=== PATIENT | female | born 1960 | race Caucasian/White ===

== ENCOUNTER 2016-11-13 10:23 | Emergency (ER) | payer OTHER ==
[~2016-11-13] VITALS: Ht 152.4 cm; Wt 51.1 kg
[~2016-11-13 10:23] MED LIST: ASPIRIN81 M2 PO; COZAAR50 MG PO; CYANOCOBALAM1000 MCG PO; DOXYCYCLINE HY100 M3 PO; HYDROCHLOROTHIA25 MG PO; IBUPROFEN800 MG PO; LIPITOR40 MG PO; METOPROLOL SUC100 MG PO; PRAVASTATIN SOD40 MG PO; TOPROL XL200 MG PO; VICODIN 5-3001 EACH PO; VITAMIN D2000 UNIT PO
[2016-11-13] MEDS ORDERED: TYLENOL WITH C1 EACH PO (13:38)
[2016-11-13 14:08] VITALS: BP 167/105
== END 2016-11-13 14:53 | disposition home or self-care (01) ==
LOC: EME 10:23
DX: M54.5 Low back pain (principal); S32.050A Wedge compression fracture of fifth lumbar vertebra, initial encounter for closed fracture; S32.010A Wedge compression fracture of first lumbar vertebra, initial encounter for closed fracture; S32.011A Stable burst fracture of first lumbar vertebra, initial encounter for closed fracture; W18.40XA Slipping, tripping and stumbling without falling, unspecified, initial encounter; Y92.018 Other place in single-family (private) house as the place of occurrence of the external cause; Y93.01 Activity, walking, marching and hiking; F17.200 Nicotine dependence, unspecified, uncomplicated
CPT/HCPCS: 72100; 80048; 85025; 85610; 99281; 99285; G8978 GP CI; G8979 GP CH; G8987 GO CI; G8988 GO CH; J1885

== ENCOUNTER 2016-11-26 12:09 | Inpatient (IN) | payer OTHER ==
[~2016-11-26] VITALS: Ht 157.5 cm; Wt 54.1 kg
[~2016-11-26 12:09] MED LIST changes: +TYLENOL WITH C1 EACH PO
[2016-11-26 12:35] LABS: ADD MIUA? YES; BILIRUBIN SMALL; BLOOD LARGE; COLOR DK YELLOW ((YELLOW)); GLUCOSE (STRIP) 250; KETONES TRACE; LEUKOCYTES NEGATIVE; NITRITE NEGATIVE; PROTEIN (STRIP) >=300; SPECIFIC GRAVITY 1.033 (1.000-1.030)
[2016-11-26 12:55] LABS: EOSINOPHIL (%) 0 % (0-5); HEMATOCRIT 37.9 % (36.0-46.0); IMMATURE GRANULOCYTE (%) 1.4 % (0.0-0.7); IMMATURE GRANULOCYTE COUNT 2.3 K/uL; LYMPHOCYTE COUNT 1.1 K/uL (1.0-2.8); MCH 29.1 PG (29.0-34.0); MCHC 33.5 G/DL (30.0-36.0); MEAN PLAT.VOLUME 12.1 uM^3 (9.5-12.4); MONOCYTE (%) 4.3 % (3-12); MONOCYTE COUNT 0.7 K/uL (0-0.8); NEUTROPHIL (%) 87.5 % (45-76); NEUTROPHIL COUNT 14.6 K/uL (1.8-6.4); RBC DIS.WIDTH-CV 15.1 % (11.8-14.6); RBC DIS.WIDTH-SD 47.3 % (39-53); RED BLOOD COUNT 4.37 M/uL (3.80-5.20)
[2016-11-26 12:57] LABS: MCV 86.7 FL (83-99); PLATELET COUNT 151 K/uL (156-360); WHITE BLOOD COUNT 16.6 K/uL (4.1-10.2)
[2016-11-26 12:58] LABS: CHLORIDE 95 mEq/L (99-109); POTASSIUM 2.8 mEq/L (3.7-5.4); SODIUM 137 mEq/L (136-147)
[2016-11-26 13:00] LABS: GLUCOSE 182 mg/dL (70-99)
[2016-11-26 13:01] LABS: ANION GAP 16 MEQ/L (2-14); INTER. NORMALIZED RATIO 1.2; PROTHROMBIN TIME 12.5 (9.2-11.2); PTT 35.4 (25-32)
[2016-11-26 13:02] LABS: TOTAL BILIRUBIN 1.2 mg/dL (0.0-1.0)
[2016-11-26 13:03] LABS: ALKALINE PHOSPHATASE 106 IU/L (3-129)
[2016-11-26 13:04] LABS: GFR ESTIMATE (CALCULATED) > 59 mL/min/
[2016-11-26 13:05] LABS: UREA NITROGEN (BUN) 24 mg/dL (9-23)
[2016-11-26 13:06] LABS: RED BLOOD CELLS RARE /HPF (0-5)
[2016-11-26 13:07] LABS: BACTERIA 1+ /HPF; CASTS PRESENT /LPF; CRYSTALS PRESENT; EPITHELIAL CELLS RARE /HPF; MUCUS NONE SEEN; UCUL ADDED? NO
[2016-11-26 13:08] LABS: AMORPHOUS URATES CRYSTALS 2+; HYALINE CASTS RARE /LPF
[2016-11-26 13:11] LABS: TROP-I INTERPRETATION NEGATIVE; TROPONIN-I 0.23 ng/mL (0.0-0.30)
[2016-11-26 18:25] LABS: BASE EXCESS 2.4 mEq/L (-3 to +3); BICARBONATE 26.3 mEq/L (22-26); CARBOXY HGB 1.1 % (0-5); METHEMOGLOBIN 1.1 % (0-1.5); PCO2 37 mm Hg (35-45); PO2 181 mm Hg (80-100); pH 7.46 (7.35-7.45)
[2016-11-26 18:26] LABS: COMMENTS - BLOOD GASES A+C+; DEVICE 840 PB; FI02 60 %; MECHANICAL RATE 18 resp/min; MODE AC; PEEP 5 CM/H20; SITE RR; TIDAL VOLUME 400 ML; TOTAL RESP RATE 18 resp/min
[2016-11-26] MEDS ORDERED: LOSARTAN POTASS50 MG PO (20:39)
[2016-11-26] MEDS ORDERED: METOPROLOL SUC200 MG PO (20:39)
[2016-11-26] MEDS ORDERED: OXYCODONE-APAP1 EACH PO (20:40)
[2016-11-26] MEDS ORDERED: VITAMIN D31000 UNIT PO (20:41)
[2016-11-26 21:31] VITALS: BP 125/92
[2016-11-26 21:41] LABS: INFLUENZA A VIRAL ANTIGEN NEGATIVE; INFLUENZA B VIRAL ANTIGEN NEGATIVE
[2016-11-26 22:00] VITALS: BP 125/92
[2016-11-26 22:30] VITALS: BP 129/86
[2016-11-26 23:00] VITALS: BP 139/93
[2016-11-26 23:45] LABS: METH RESISTANT S AUREUS PCR NEGATIVE (NEGATIVE)
[2016-11-26 23:46] LABS: PROBE CHECK PASS; SPECIMEN PROCESSING CONTROL PASS
[2016-11-27] VITALS (10 sets, daily range): BP systolic 90–155; BP diastolic 62–101
[2016-11-27 06:19] LABS: HEMATOCRIT 28.7 % (36.0-46.0); MCH 29.2 PG (29.0-34.0); MCHC 33.1 G/DL (30.0-36.0); MCV 88.3 FL (83-99); MEAN PLAT.VOLUME 11.9 uM^3 (9.5-12.4); PLATELET COUNT 115 K/uL (156-360); RBC DIS.WIDTH-CV 15.7 % (11.8-14.6); RBC DIS.WIDTH-SD 51.3 % (39-53)
[2016-11-27 06:23] LABS: ANION GAP 9 MEQ/L (2-14); CHLORIDE 108 MEQ/L (99-109); GFR ESTIMATE (CALCULATED) > 59 mL/min/; GLUCOSE 141 mg/dL (70-99); POTASSIUM 2.8 MEQ/L (3.7-5.4); SAMPLE HEMOLYSIS CHECK 0; SAMPLE ICTERIC CHECK 0; SAMPLE LIPEMIA CHECK 0; SODIUM 139 MEQ/L (136-147); UREA NITROGEN (BUN) 16 mg/dL (9-23)
[2016-11-27 06:26] LABS: RED BLOOD COUNT 3.25 M/uL (3.80-5.20)
[2016-11-27 06:35] LABS: INTER. NORMALIZED RATIO 1.3; PROTHROMBIN TIME 13.3 (9.2-11.2)
[2016-11-27 19:36] LABS: ANION GAP 5 MEQ/L (2-14); CHLORIDE 112 MEQ/L (99-109); GFR ESTIMATE (CALCULATED) > 59 mL/min/; GLUCOSE 97 mg/dL (70-99); POTASSIUM 3.4 MEQ/L (3.7-5.4); SAMPLE HEMOLYSIS CHECK 0; SAMPLE ICTERIC CHECK 0; SAMPLE LIPEMIA CHECK 0; SODIUM 140 MEQ/L (136-147); UREA NITROGEN (BUN) 18 mg/dL (9-23)
[2016-11-28] VITALS: BP 113/72
[2016-11-28 00:41] LABS: HEMATOCRIT 27.8 % (36.0-46.0); MCH 29.4 PG (29.0-34.0); MCHC 33.1 G/DL (30.0-36.0); MCV 88.8 FL (83-99); MEAN PLAT.VOLUME 12.5 uM^3 (9.5-12.4); PLATELET COUNT 140 K/uL (156-360); RBC DIS.WIDTH-CV 16.1 % (11.8-14.6); RBC DIS.WIDTH-SD 51.1 % (39-53); RED BLOOD COUNT 3.13 M/uL (3.80-5.20); WHITE BLOOD COUNT 9.5 K/uL (4.1-10.2)
[2016-11-28 00:49] LABS: CHLORIDE 115 mEq/L (99-109); MAGNESIUM 1.4 mg/dL (1.3-2.7); SODIUM 144 mEq/L (136-147)
[2016-11-28 00:51] LABS: GLUCOSE 96 mg/dL (70-99)
[2016-11-28 00:53] LABS: ANION GAP 6 MEQ/L (2-14)
[2016-11-28 00:54] LABS: TOTAL BILIRUBIN 0.4 mg/dL (0.0-1.0)
[2016-11-28 00:55] LABS: GFR ESTIMATE (CALCULATED) > 59 mL/min/
[2016-11-28 00:56] LABS: UREA NITROGEN (BUN) 20 mg/dL (9-23)
[2016-11-28 00:59] LABS: ALKALINE PHOSPHATASE 61 IU/L (3-129)
[2016-11-28 01:01] LABS: TROP-I INTERPRETATION POSITIVE
[2016-11-28 01:02] LABS: TROPONIN-I 1.75 ng/mL (0.0-0.30)
[2016-11-28 01:40] LABS: ANISOCYTOSIS 1+; BASOPHIL COUNT 0.1 K/uL (0-0.1); EOSINOPHIL (%) 0 % (0-5); HEMATOLOGY COMMENT 1 REV; IMMATURE GRANULOCYTE (%) 0.5 % (0.0-0.7); IMMATURE GRANULOCYTE COUNT 0.5 K/uL; LYMPHOCYTE COUNT 1.4 K/uL (1.0-2.8); MACROCYTES 1+; MICROCYTOSIS FEW; MONOCYTE (%) 3.8 % (3-12); MONOCYTE COUNT 0.4 K/uL (0-0.8); NEUTROPHIL (%) 80.6 % (45-76); NEUTROPHIL COUNT 7.7 K/uL (1.8-6.4); OVALOCYTES FEW; PLAT.SUFFICIENCY ADEQUATE
[2016-11-28 03:00] VITALS: BP 160/96
[2016-11-28 06:01] LABS: HEMATOCRIT 28.7 % (36.0-46.0); MCH 28.7 PG (29.0-34.0); MCHC 32.1 G/DL (30.0-36.0); MCV 89.4 FL (83-99); MEAN PLAT.VOLUME 12.8 uM^3 (9.5-12.4); PLATELET COUNT 148 K/uL (156-360); RBC DIS.WIDTH-CV 16.5 % (11.8-14.6); RBC DIS.WIDTH-SD 53.7 % (39-53); RED BLOOD COUNT 3.21 M/uL (3.80-5.20); WHITE BLOOD COUNT 10.8 K/uL (4.1-10.2)
[2016-11-28 06:28] LABS: BASE EXCESS -0.7 mEq/L (-3 to +3); BICARBONATE 23.1 mEq/L (22-26); METHEMOGLOBIN 1.4 % (0-1.5); PCO2 34 mm Hg (35-45); pH 7.44 (7.35-7.45)
[2016-11-28 06:29] LABS: COMMENTS - BLOOD GASES C+; CONTINUOUS POS AIRWAY PRESSURE 5 cm H2O; DEVICE 840; FI02 30 %; MODE SPONT; PO2 99 mm Hg (80-100); PRES. SUPPORT 12 CM/H2O; SITE A-LINE; TOTAL RESP RATE 12 resp/min
[2016-11-28 06:44] LABS: BASOPHIL COUNT 0.1 K/uL (0-0.1); EOSINOPHIL (%) 0 % (0-5); IMMATURE GRANULOCYTE (%) 0.4 % (0.0-0.7); LYMPHOCYTE COUNT 1.9 K/uL (1.0-2.8); MONOCYTE (%) 3.5 % (3-12); MONOCYTE COUNT 0.4 K/uL (0-0.8); NEUTROPHIL (%) 78.2 % (45-76); NEUTROPHIL COUNT 8.4 K/uL (1.8-6.4)
[2016-11-28 06:52] LABS: TROP-I INTERPRETATION POSITIVE
[2016-11-28 07:02] LABS: TROPONIN-I 1.65 ng/mL (0.0-0.30)
[2016-11-28 07:24] LABS: ALKALINE PHOSPHATASE 58 IU/L (3-129); ANION GAP 8 MEQ/L (2-14); CHLORIDE 112 MEQ/L (99-109); GFR ESTIMATE (CALCULATED) > 59 mL/min/; GLUCOSE 88 mg/dL (70-99); POTASSIUM 4.1 MEQ/L (3.7-5.4); SAMPLE HEMOLYSIS CHECK 0; SAMPLE ICTERIC CHECK 0; SAMPLE LIPEMIA CHECK 0; SODIUM 142 MEQ/L (136-147); TOTAL BILIRUBIN 0.4 MG/DL (0.0-1.0); UREA NITROGEN (BUN) 21 mg/dL (9-23)
[2016-11-28 07:32] LABS: HEMATOLOGY COMMENT 1 SMEAR COMPATIBLE; USER ID STC
[2016-11-28 09:00] VITALS: BP 149/94
[2016-11-28 10:00] VITALS: BP 150/100
[2016-11-28 13:00] VITALS: BP 168/109
[2016-11-28 16:26] LABS: POC NON-PRINT COM 1 ND
[2016-11-29] VITALS: BP 168/109
[2016-11-29 01:06] LABS: HEMATOCRIT 30.5 % (36.0-46.0); MCH 29.4 PG (29.0-34.0); MCHC 32.8 G/DL (30.0-36.0); MCV 89.7 FL (83-99); MEAN PLAT.VOLUME 12.1 uM^3 (9.5-12.4); RBC DIS.WIDTH-CV 16.9 % (11.8-14.6); RBC DIS.WIDTH-SD 53.8 % (39-53)
[2016-11-29 01:11] LABS: CHLORIDE 116 mEq/L (99-109); POTASSIUM 3.5 mEq/L (3.7-5.4); SODIUM 147 mEq/L (136-147)
[2016-11-29 01:12] LABS: GLUCOSE 110 mg/dL (70-99); PLATELET COUNT 205 K/uL (156-360); WHITE BLOOD COUNT 14.1 K/uL (4.1-10.2)
[2016-11-29 01:14] LABS: ANION GAP 12 MEQ/L (2-14)
[2016-11-29 01:16] LABS: GFR ESTIMATE (CALCULATED) > 59 mL/min/
[2016-11-29 01:17] LABS: UREA NITROGEN (BUN) 22 mg/dL (9-23)
[2016-11-29 02:14] LABS: BASOPHIL COUNT 0.1 K/uL (0-0.1); EOSINOPHIL (%) 0.1 % (0-5); HEMATOLOGY COMMENT 1 REV; IMMATURE GRANULOCYTE (%) 0.5 % (0.0-0.7); IMMATURE GRANULOCYTE COUNT 0.7 K/uL; LYMPHOCYTE COUNT 2.2 K/uL (1.0-2.8); MONOCYTE (%) 3.1 % (3-12); MONOCYTE COUNT 0.4 K/uL (0-0.8); NEUTROPHIL (%) 80.4 % (45-76); NEUTROPHIL COUNT 11.3 K/uL (1.8-6.4); USER ID SLU
[2016-11-29 11:00] VITALS: BP 137/97
[2016-11-29 12:31] LABS: MAGNESIUM 1.5 mg/dL (1.3-2.7)
== END 2016-11-29 15:42 | disposition short-term general hospital (02) | DRG 871 ==
LOC: EME → EDBD 12:09 → EDOF 19:57 → 4WEST 19:57
PROVIDERS: Emergency Medicine; Internal Medicine Critical Care Medicine; Obstetrics & Gynecology
PROC: 5A1945Z Respiratory Ventilation, 24-96 Consecutive Hours (ICD-10-PCS; principal; 2016-11-26)
PROC: 0BH17EZ Insertion of Endotracheal Airway into Trachea, Via Natural or Artificial Opening (ICD-10-PCS; 2016-11-26)
PROC: 05H533Z Insertion of Infusion Device into Right Subclavian Vein, Percutaneous Approach (ICD-10-PCS; 2016-11-26)
DX: A40.3 Sepsis due to Streptococcus pneumoniae (principal); R65.21 Severe sepsis with septic shock; J96.00 Acute respiratory failure, unspecified whether with hypoxia or hypercapnia; J13 Pneumonia due to Streptococcus pneumoniae; N39.0 Urinary tract infection, site not specified; I48.92 Unspecified atrial flutter; J98.11 Atelectasis; I51.81 Takotsubo syndrome; I16.0 Hypertensive urgency; E87.6 Hypokalemia; E83.52 Hypercalcemia; I71.4 Abdominal aortic aneurysm, without rupture; Z91.19 Patient's noncompliance with other medical treatment and regimen; G43.909 Migraine, unspecified, not intractable, without status migrainosus; F17.290 Nicotine dependence, other tobacco product, uncomplicated; E78.5 Hyperlipidemia, unspecified; M81.0 Age-related osteoporosis without current pathological fracture
CPT/HCPCS: 36600; 70450; 71010; 71260; 74177; 80048; 80048 91; 80053; 81003; 82272; 82803; 83605; 83735; 84100; 84484; 85025; 85025 91; 85027; 85610; 85730; 87040; 87070; 87077; 87081; 87181; 87205; 87502; 87641; 87801; 93005; 93306; 94002; 94003; 99281; 99285; J0153; J0696; J2270; J2543; J2704; J3010; J3370; J3475; J3480; J7030; J7050; J7120; S0028